=== PATIENT | female | born 1940 | race Caucasian/White ===

== ENCOUNTER 2017-12-31 08:33 | Outpatient (CLI) | payer MEDICARE ==
--- NOTE | 2017-12-31 09:24 | RAD ---
THREE VIEWS LEFT HAND: Date: 12-31-17 History: Left hand pain. FINDINGS: There is interval scattered osteoarthritis involving the interphalangeal joints as well as the first carpal metacarpal joint and metacarpal phalangeal joint of the thumb. Metallic density (ring) overlie s the right finger limiting osseous detail at this level. There is otherwise no acute fracture, dislo cation, or other osseous abnormality involving the left hand. IMPRESSION: Mild osteoarthritis without evidence of an acute osseous abnormality involving the left hand. POS: ANDREAS
== END 2017-12-31 08:34 | disposition home or self-care (01) ==
LOC: RAD-FRANK 08:33
PROVIDERS: ATTEND Nurse Practitioner Family
DX: M79.642 Pain in left hand (principal); M19.042 Primary osteoarthritis, left hand; N18.2 Chronic kidney disease, stage 2 (mild); E78.2 Mixed hyperlipidemia
CPT/HCPCS: 80048; 80061; 80076; 85610

== ENCOUNTER 2018-04-26 03:53 | Emergency (ER) | payer MEDICARE ==
[2018-04-26 04:24] LABS: Bilirubin Small (Negative); Blood, Urine Large (Negative); Clarity TURBID (Clear); Glucose, Urine (Dipstick) Negative (Negative); Leukocyte Large (Negative); Nitrite Negative (Negative); Protein, Urine (Dipstick) 100 mg/dL (Neg-Trace); Specific Gravity, Urine 1.023 (1.002-1.036)
[2018-04-26 04:26] LABS: Bacteria/HPF None Seen HPF (None Seen); Pathc Cast-AUWi Flag 1.21 (0-2.49); Squamous Epithelial None Seen HPF (0-3)
[2018-04-26 04:27] LABS: Yeast-AUWi Flag 86.4 (0-25.0)
[2018-04-26 04:51] LABS: Hyaline Casts/LPF 0-3 HYALINE CAST LPF (0-3 Hyaline); RBC/HPF GREATER THAN 50-TNTC HPF (0-3); Yeast-All Forms None Seen HPF (None Seen)
[2018-04-26] MEDS ORDERED: Phenazopyridine HCl 97.5 MG TABLET PO SCH (05:00)
[2018-04-26] MEDS ORDERED: Ciprofloxacin 500 MG TAB ONE (05:25)
== END 2018-04-26 05:28 | disposition home or self-care (01) ==
LOC: ERS 03:53
DX: N30.00 Acute cystitis without hematuria (principal); Z79.01 Long term (current) use of anticoagulants; Z79.899 Other long term (current) drug therapy; Z79.82 Long term (current) use of aspirin
CPT/HCPCS: 81003; 81015; 99283

== ENCOUNTER 2019-07-09 14:07 | Outpatient (CLI) | payer MEDICARE ==
--- NOTE | 2019-07-09 14:20 | RAD ---
Exam: Abdomen one view: HISTORY: Abdominal pain, lump on abdomen COMPARISON: None FINDINGS: Moderate levoscoliosis. Pacemaker wires in place. Gas and fecal material in the colon. No evidence fo r large or small bowel obstruction. No evidence for free intraperitoneal air. No overt calculus. IMPRESSION: Lumbar levoscoliosis. No evidence for other acute process.
== END 2019-07-09 14:08 | disposition home or self-care (01) ==
LOC: RAD-FRANK 14:07
PROVIDERS: ATTEND Nurse Practitioner Family
DX: R10.9 Unspecified abdominal pain (principal); M41.86 Other forms of scoliosis, lumbar region
CPT/HCPCS: 74018

== ENCOUNTER 2021-08-04 10:52 | Outpatient (CLI) | payer MEDICARE | END 2021-08-04 10:53 | disposition home or self-care (01) | LOC: BICMAMMO 10:52 | PROVIDERS: ATTEND Nurse Practitioner Family | DX: Z12.31 Encounter for screening mammogram for malignant neoplasm of breast (principal) | CPT/HCPCS: 77063; 77067 ==

== ENCOUNTER 2023-03-20 11:21 | Outpatient (CLI) | payer MEDICARE | END 2023-03-20 11:22 | disposition home or self-care (01) | LOC: BICMAMMO 11:21 | PROVIDERS: ATTEND Internal Medicine Rheumatology | DX: M81.0 Age-related osteoporosis without current pathological fracture (principal); M85.89 Other specified disorders of bone density and structure, multiple sites | CPT/HCPCS: 77080 ==

== ENCOUNTER 2023-04-15 09:04 | Outpatient (CLI) | payer MEDICARE | END 2023-04-15 09:05 | disposition home or self-care (01) | LOC: RAD-FRANK 09:04 | PROVIDERS: ATTEND Nurse Practitioner Family | DX: M25.552 Pain in left hip (principal) ==

== ENCOUNTER 2025-01-05 10:21 | Outpatient (CLI) | payer MEDICARE | END 2025-01-05 10:22 | disposition home or self-care (01) | LOC: BICULT 10:21 | PROVIDERS: ATTEND Nurse Practitioner Family | DX: R30.0 Dysuria (principal); N39.0 Urinary tract infection, site not specified; R93.5 Abnormal findings on diagnostic imaging of other abdominal regions, including retroperitoneum | CPT/HCPCS: 76856 ==